=== PATIENT | female | born 1950 | race Caucasian/White ===

== ENCOUNTER 2020-11-17 08:59 | Emergency (ER) | payer OTHER ==
[2020-11-17 10:50] LABS: BASOPHIL 0.7 % (0-2); EOSINOPHIL 2.1 % (0-7); HGB 13.1 g/dl (12.5-16.0); LYMPHOCYTE 26.8 % (15-48); MCH 33.4 pg (25.0-31.0); MCHC 33.6 g/dL (32.0-36.0); MCV 99.5 fL (78.0-100.0); MONOCYTE 9.9 % (0-12); MPV 9.5 fL (6.0-9.5); NEUTROPHIL 60.4 % (41-80); NRBC 0; PLT 270 K/uL (150-400); RBC 3.92 M/uL (4.20-5.40); RDW 12.3 % (11.5-14.0); WBC 7.7 K/uL (4.0-10.5)
[2020-11-17 11:05] LABS: INR 1.04 (0.9-1.2)
[2020-11-17 11:05] LABS: BILIRUBIN NEGATIVE (NEGATIVE); BLOOD NEGATIVE Ery/uL (NEGATIVE); CLARITY CLEAR (CLEAR); COLOR YELLOW (YELLOW); GLUCOSE (U) NORMAL (NORMAL); LEUKOCYTES TRACE Leu/uL (NEGATIVE); NITRITE NEGATIVE (NEGATIVE); PROTEIN NEGATIVE (NEGATIVE); SPECIFIC GRAVITY <=1.005 (1.001-1.030); UROBILINOGEN 0.2 mg/dL (0.2-1.0)
[2020-11-17 11:16] LABS: ALBUMIN 3.4 g/dL (3.4-5.0); BILIRUBIN - TOTAL 0.4 mg/dL (0.2-1.0); BUN/CREAT RATIO (CALC) 18.8 RATIO; CREATININE 0.64 mg/dL (0.51-0.95); GLOBULIN (CALCULATION) 3.8 g/dL; POTASSIUM 4.4 mmol/L (3.5-5.1); TOTAL PROTEIN 7.2 g/dL (6.4-8.2)
[2020-11-17 11:17] LABS: PRO-BNP 48 pg/mL (<125)
[2020-11-17 11:22] LABS: URINARY WBC RARE
[2020-11-17 11:23] LABS: BACTERIA 1+
[2020-11-17] MEDS ORDERED: BENTYL10 MG PO (15:40)
[2020-11-17] MEDS ORDERED: ONDANSETRON ODT4 MG PO (15:40)
== END 2020-11-17 16:14 | disposition home or self-care (01) ==
LOC: FER 08:59
PROVIDERS: Emergency Medicine
DX: R10.31 Right lower quadrant pain (principal); Z87.891 Personal history of nicotine dependence; K21.9 Gastro-esophageal reflux disease without esophagitis; Z79.899 Other long term (current) drug therapy; Z90.89 Acquired absence of other organs; Z88.8 Allergy status to other drugs, medicaments and biological substances
CPT/HCPCS: 36415; 76705; 80053; 81001; 83605; 83690; 83735; 83880; 84145; 84484; 85025; 85610; 85730; 93005; 96372; J0500; J1170; J2405; J7030; Q9967